=== PATIENT | male | born 1955 | race Caucasian/White ===

== ENCOUNTER → 2018-10-04 | Outpatient (CLI) | payer OTHER ==
[~2018-10-04] MED LIST: ALBU8.5H IH; BUDE0.5A INH; BUDE10.2 INH; CETI-176 PO; CIPR-214 PO; MELO-149 PO; MELO-207 PO; METR-1 PO; MOMR ENA; MON10 PO; ONDA4TAB PO; OXYC-865 PO; PROM-110 PO; VARD20TA31 PO
--- NOTE | 2018-10-06 17:02 | RT HOLTER TEST ---
FACILITY: [facility] - [place] PATIENT NAME: DREA STILL : [id number] MR: [id number] V: [id number] EXAM DATE: ORDERING PHYSICIAN: IVELISSE GAMEZ TECHNOLOGIST: ANSON Hook-up date: 2018-10-04 07:16:00 Duration: 47:59:00 Test Indications: BRADYCARDIA Medications: N/A [id number] QRS complexes 15 Ventricular ectopics which represent <1 % of total QRS comp. 42 Supraventricular ectopics which represent <1 % of total QRS comp. * Paced QRS complexes which represent % of total QRS comp. VENTRICULAR ECTOPY 15 Isolated 0 Bigeminal Cycles 0 Couplets 0 Runs 0 Beats in Runs * Beats LONGEST at * BPM at :: -- * Beats FASTEST at * BPM at :: -- SUPRAVENTRICULAR ECTOPY 31 Isolated 0 Couplets 2 Runs 11 Beats in Runs 8 Beats LONGEST at 90 BPM at 03:24:07 2018-10-05 3 Beats FASTEST at 125 BPM at 02:01:42 2018-10-05 HEART RATES 42 MIN at 13:52:59 2018-10-04 57 AVG 97 MAX at 05:10:04 2018-10-06 LONGEST RR 1.456 secs at 03:58:14 2018-10-06 S-T LEVELS Channel 1 -12.800 mm MIN at 07:16:00 2018-10-04 -12.800 mm MAX at 07:16:00 2018-10-04 Channel 2 -12.800 mm MIN at 07:16:00 2018-10-0412.800 mm MAX at 07:16:00 2018-10-04 Channel 3 -12.800 mm MIN at 07:16:00 2018-10-04 -12.800 mm MAX at 07:16:00 2018-10-04 Rare ventricular ectopy. No couplets, triplets, or runs were recorded. Rare supraventricular ectopy with one triplet and one short burst of suprventricular tachycardia, whi ch may be atrial fibrillation. Sinus bradycardia was noted frequently throughout the recording. No pauses of more than two (2) seconds were recorded. Intermittent ST depression and T wave inversion were noted in lead 3 during recording. Confirmed by MAYI CRAMER ([id number]) on 10/06/2018 5:01:21 PM Referred By: Overread By: MAYI CRAMER
== END ==
LOC: RESP 01:39
PROVIDERS: ATTEND Physician Assistant
DX: R00.1 Bradycardia, unspecified (principal)
CPT/HCPCS: 93225; 93226

== ENCOUNTER → 2018-11-22 | Outpatient (CLI) | payer OTHER ==
--- NOTE | 2018-11-24 13:21 | RT STRESS TEST REPORT ---
FACILITY: [facility] - [place] PATIENT NAME: DREA STILL : [id number] MR: [id number] V: [id number] EXAM DATE: ORDERING PHYSICIAN: IVELISSE GAMEZ TECHNOLOGIST: Jaydon Acquisition Time: 2018-11-22 09:16:42 Total Exercise Time: 00:11:01 Test Indications: Abnormal ECG Medications: losartan simvastatin Protocol: BRUCE2 Max HR: 129 BPM 82% of Pred: 156 BPM Max BP: 218/088 mmHG Max Work Load: 10.4 METS Baseline EKG Sinus bradycardia Patient achieved 82% of target heart rate The test was stopped because of shortness of breath Impraeesion Patient did not achieve 85 % of target heart rate Rate related ST changes noted in the infero lateral leads which are likely not ischemic Confirmed by JENS NIEVES ([id number]) on 11/24/2018 1:17:46 PM Referred By: Overread By: JENS NIEVES
== END ==
LOC: RESP 01:13
PROVIDERS: ATTEND Physician Assistant
DX: R94.31 Abnormal electrocardiogram [ECG] [EKG] (principal)
CPT/HCPCS: 93017